=== PATIENT | female | born 1935 | race Caucasian/White ===

== ENCOUNTER 2016-12-28 17:35 | Inpatient (IN) | payer OTHER ==
[~2016-12-28] VITALS: Ht 167.6 cm; Wt 59.2 kg
[~2016-12-28 17:35] MED LIST: DONE10TA56 PO; RISP0.5T24 PO
[2016-12-28] MEDS ORDERED: SODIUM CHLORIDE 0.9% 1,000ML IVBOLUS ONE (18:30)
[2016-12-28] MEDS ORDERED: SODIUM CHLORIDE FLUSH 10ML SYR IVF ONE (18:30)
[2016-12-28 18:41] LABS: HEMATOCRIT 40.3 % (34.6-47.8); HEMOGLOBIN 13.7 g/dL (11.7-16.4); WHITE BLOOD COUNT 19.7 x10^3/uL (3.4-10)
[2016-12-28 18:53] LABS: ASPARTATE AMINO TRANSFERASE 36 U/L (15-37); BLOOD UREA NITROGEN 15 mg/dL (7-18)
[2016-12-28 19:04] LABS: DIFF TOTAL CELLS COUNTED 100 CELL DIFF
[2016-12-28 19:24] LABS: VERIFY COUNTS? YES
[2016-12-28] MEDS ORDERED: CEFTRIAXONE PMX 1GM/50ML 50 ML ONE (20:29)
[2016-12-28] MEDS ORDERED: CEFTRIAXONE PMX 1GM/50ML 50 ML IV ONE (20:30)
[2016-12-28] MEDS ORDERED: OMNIPAQUE 350 MG/ML, 100ML BOTTLE ONE (21:38)
[2016-12-28] MEDS ORDERED: AZITHROMYCIN 500 MG in SODIUM CHLORIDE 0.9% 250 ML IV ONE (22:00)
[2016-12-28] MEDS ORDERED: ONDANSETRON 2MG/ML, 2ML IVPush PRN (22:30)
[2016-12-28] MEDS ORDERED: ACETAMINOPHEN 325 MG TABLET PO PRN (22:30)
[2016-12-28] MEDS ORDERED: POLYETHYLENE GLYCOL 17 GM PACKET PO PRN (22:30)
[2016-12-28] MEDS: AZITHROMYCIN 500 MG in SODIUM CHLORIDE 0.9% 250 ML IV SCH (23:06)
[2016-12-28] MEDS: SODIUM CHLORIDE 0.9% 1,000 ML IV SCH (23:06)
[2016-12-29] VITALS: BP 161/83
[2016-12-29] MEDS: RISPERIDONE 0.5 MG TABLET PO SCH ×3 (00:18→21:42)
[2016-12-29] MEDS: HEPARIN 5,000 UNITS/ML, 1ML SQ SCH ×4 (00:18→23:04)
[2016-12-29 02:30] VITALS: BP 158/83
[2016-12-29 06:03] LABS: HEMATOCRIT 34.9 % (34.6-47.8); HEMOGLOBIN 11.9 g/dL (11.7-16.4)
[2016-12-29 06:36] LABS: ASPARTATE AMINO TRANSFERASE 32 U/L (15-37); BLOOD UREA NITROGEN 11 mg/dL (7-18)
[2016-12-29] MEDS: DONEPEZIL 10 MG TABLET PO SCH (09:18)
[2016-12-29] MEDS: BISACODYL 10 MG SUPP PR SCH (09:21)
[2016-12-29] MEDS: SENNA/DOCUSATE TABLET PO SCH (09:21)
[2016-12-29] MEDS ORDERED: POTASSIUM CHLORIDE 40 MEQ in SODIUM CHLORIDE 0.9% 500 ML IV ONE (09:30)
[2016-12-29] MEDS ORDERED: PNEUMOCOCCAL 23 VACCINE IM-VACC ONE (10:30)
[2016-12-29] MEDS ORDERED: FLU VACC QS2017-18 (36MOS+) UP/PF 0.5 ML IM-VACC ONE (10:30)
[2016-12-29] MEDS: SODIUM CHLORIDE 0.9% 1,000 ML IV SCH (12:48)
[2016-12-29 15:10] VITALS: BP 116/68
[2016-12-29 20:01] VITALS: BP 122/72
[2016-12-29] MEDS: AZITHROMYCIN 500 MG in SODIUM CHLORIDE 0.9% 250 ML IV SCH (23:04)
[2016-12-30] MEDS: CEFTRIAXONE PMX 1GM/50ML 50 ML IV SCH (00:30)
[2016-12-30 01:09] VITALS: BP 161/81
[2016-12-30 05:41] LABS: BLOOD UREA NITROGEN 14 mg/dL (7-18)
[2016-12-30 05:43] LABS: HEMATOCRIT 31.4 % (34.6-47.8); HEMOGLOBIN 10.7 g/dL (11.7-16.4); WHITE BLOOD COUNT 13.7 x10^3/uL (3.4-10)
[2016-12-30 06:38] VITALS: BP 188/70
[2016-12-30] MEDS ORDERED: hydrALAzine 20 MG/ML, 1ML IV PRN (07:30)
[2016-12-30] MEDS ORDERED: POTASSIUM CHLORIDE 40 MEQ in SODIUM CHLORIDE 0.9% 100 ML IV ONE (07:30)
[2016-12-30] MEDS: SENNA/DOCUSATE TABLET PO SCH (08:11)
[2016-12-30] MEDS: RISPERIDONE 0.5 MG TABLET PO SCH ×2 (08:11→19:39)
[2016-12-30] MEDS: BISACODYL 10 MG SUPP PR SCH (08:11)
[2016-12-30] MEDS: HEPARIN 5,000 UNITS/ML, 1ML SQ SCH ×2 (08:11→15:30)
[2016-12-30] MEDS: DONEPEZIL 10 MG TABLET PO SCH (08:11)
[2016-12-30] MEDS ORDERED: POTASSIUM CHLORIDE 40 MEQ in SODIUM CHLORIDE 0.9% 500 ML IV ONE (10:00)
[2016-12-30 12:12] VITALS: BP 171/73
[2016-12-30] MEDS: SODIUM CHLORIDE 0.9% 1,000 ML IV SCH (18:00)
[2016-12-30 18:40] VITALS: BP 122/75
[2016-12-30] MEDS ORDERED: ONDANSETRON 2MG/ML, 2ML IVPush PRN (20:00)
[2016-12-30] MEDS ORDERED: POLYETHYLENE GLYCOL 17 GM PACKET PO PRN (20:00)
[2016-12-30] MEDS ORDERED: ACETAMINOPHEN 325 MG TABLET PO PRN (20:00)
[2016-12-30] MEDS: AZITHROMYCIN 500 MG in SODIUM CHLORIDE 0.9% 250 ML IV SCH (22:29)
[2016-12-31 00:52] VITALS: BP 180/81
[2016-12-31] MEDS: CEFTRIAXONE PMX 1GM/50ML 50 ML IV SCH (01:32)
[2016-12-31] MEDS: HEPARIN 5,000 UNITS/ML, 1ML SQ SCH ×3 (04:51→20:30)
[2016-12-31] MEDS: SODIUM CHLORIDE 0.9% 1,000 ML IV SCH (04:53)
[2016-12-31 05:24] LABS: HEMOGLOBIN 10.8 g/dL (11.7-16.4); WHITE BLOOD COUNT 9.2 x10^3/uL (3.4-10)
[2016-12-31 05:30] LABS: ASPARTATE AMINO TRANSFERASE 39 U/L (15-37); BLOOD UREA NITROGEN 10 mg/dL (7-18)
[2016-12-31 06:18] VITALS: BP 159/87
[2016-12-31] MEDS: hydrALAzine 20 MG/ML, 1ML IV PRN ×2 (06:31→20:29)
[2016-12-31 07:25] VITALS: BP 151/74
[2016-12-31] MEDS: DONEPEZIL 10 MG TABLET PO SCH (08:02)
[2016-12-31] MEDS: RISPERIDONE 0.5 MG TABLET PO SCH ×2 (08:02→20:29)
[2016-12-31] MEDS: SENNA/DOCUSATE TABLET PO SCH (08:03)
[2016-12-31] MEDS: BISACODYL 10 MG SUPP PR SCH (08:03)
[2016-12-31] MEDS ORDERED: POTASSIUM CHLORIDE 20 MEQ TAB.ER.PRT PO ONE (12:30)
[2016-12-31 13:14] VITALS: BP 165/87
[2016-12-31 18:48] VITALS: BP 171/89
[2016-12-31] MEDS: AZITHROMYCIN 500 MG in SODIUM CHLORIDE 0.9% 250 ML IV SCH (22:53)
[2017-01-01] MEDS: CEFTRIAXONE PMX 1GM/50ML 50 ML IV SCH (01:58)
[2017-01-01 03:51] VITALS: BP 145/77
[2017-01-01 04:59] LABS: HEMATOCRIT 32.1 % (34.6-47.8); HEMOGLOBIN 10.9 g/dL (11.7-16.4); WHITE BLOOD COUNT 7.9 x10^3/uL (3.4-10)
[2017-01-01] MEDS: HEPARIN 5,000 UNITS/ML, 1ML SQ SCH ×3 (05:00→22:12)
[2017-01-01 05:10] LABS: BLOOD UREA NITROGEN 10 mg/dL (7-18)
[2017-01-01 06:35] VITALS: BP 153/78
[2017-01-01] MEDS: BISACODYL 10 MG SUPP PR SCH (07:58)
[2017-01-01] MEDS: DONEPEZIL 10 MG TABLET PO SCH (08:01)
[2017-01-01] MEDS: RISPERIDONE 0.5 MG TABLET PO SCH ×2 (08:02→22:12)
[2017-01-01] MEDS: SENNA/DOCUSATE TABLET PO SCH (08:02)
[2017-01-01] MEDS ORDERED: LEVO750T26 PO (08:21)
[2017-01-01] MEDS ORDERED: POTASSIUM CHLORIDE 40 MEQ in SODIUM CHLORIDE 0.9% 500 ML IV ONE (08:30)
[2017-01-01] MEDS ORDERED: MAGNESIUM SULFATE 1 GM in SODIUM CHLORIDE 0.9% 50 ML IV ONE (08:30)
[2017-01-01 14:12] VITALS: BP 175/85
[2017-01-01] MEDS: hydrALAzine 20 MG/ML, 1ML IV PRN (15:52)
[2017-01-01 18:49] VITALS: BP 150/76
[2017-01-01] MEDS: AZITHROMYCIN 500 MG in SODIUM CHLORIDE 0.9% 250 ML IV SCH (22:12)
[2017-01-02 00:12] VITALS: BP 174/84
[2017-01-02] MEDS: CEFTRIAXONE PMX 1GM/50ML 50 ML IV SCH (00:29)
[2017-01-02] MEDS: hydrALAzine 20 MG/ML, 1ML IV PRN ×2 (00:29→20:25)
[2017-01-02] MEDS: HEPARIN 5,000 UNITS/ML, 1ML SQ SCH ×3 (05:13→20:25)
[2017-01-02 05:34] LABS: HEMATOCRIT 30.5 % (34.6-47.8); HEMOGLOBIN 10.4 g/dL (11.7-16.4); WHITE BLOOD COUNT 9.6 x10^3/uL (3.4-10)
[2017-01-02 05:35] LABS: BLOOD UREA NITROGEN 9 mg/dL (7-18)
[2017-01-02 07:15] VITALS: BP 168/72
[2017-01-02] MEDS: BISACODYL 10 MG SUPP PR SCH (08:04)
[2017-01-02] MEDS: DONEPEZIL 10 MG TABLET PO SCH (08:09)
[2017-01-02] MEDS: SENNA/DOCUSATE TABLET PO SCH (08:09)
[2017-01-02] MEDS: RISPERIDONE 0.5 MG TABLET PO SCH ×2 (08:09→20:24)
[2017-01-02] MEDS ORDERED: POTASSIUM CHLORIDE 40 MEQ in SODIUM CHLORIDE 0.9% 500 ML IV ONE (11:30)
[2017-01-02] MEDS: LEVOFLOXACIN 750 MG TABLET PO SCH (12:17)
[2017-01-02 13:01] VITALS: BP 146/77
[2017-01-02 19:57] VITALS: BP 175/80
[2017-01-02 22:10] VITALS: BP 155/71
[2017-01-02 22:50] VITALS: BP 149/64
[2017-01-03 00:25] VITALS: BP 152/72
[2017-01-03] MEDS: HEPARIN 5,000 UNITS/ML, 1ML SQ SCH ×2 (05:16→13:00)
[2017-01-03 06:05] LABS: HEMOGLOBIN 11.3 g/dL (11.7-16.4); WHITE BLOOD COUNT 8.8 x10^3/uL (3.4-10)
[2017-01-03 06:29] LABS: BLOOD UREA NITROGEN 10 mg/dL (7-18)
[2017-01-03 07:16] VITALS: BP 174/81
[2017-01-03] MEDS ORDERED: LISINOPRIL 20 MG TABLET PO SCH (09:00)
[2017-01-03] MEDS: BISACODYL 10 MG SUPP PR SCH (09:00)
[2017-01-03] MEDS: DONEPEZIL 10 MG TABLET PO SCH (10:31)
[2017-01-03] MEDS: SENNA/DOCUSATE TABLET PO SCH (10:31)
[2017-01-03] MEDS: RISPERIDONE 0.5 MG TABLET PO SCH (10:31)
[2017-01-03] MEDS: LEVOFLOXACIN 750 MG TABLET PO SCH (12:31)
[2017-01-03 13:50] VITALS: BP 134/73
== END 2017-01-03 16:30 | DRG 193 ==
LOC: ED 21:37 → EDIP 21:50 → 3NE 23:17
PROVIDERS: ADMIT Internal Medicine; ATTEND Internal Medicine
PROC: 0T9B70Z Drainage of Bladder with Drainage Device, Via Natural or Artificial Opening (ICD-10-PCS; principal; 2016-12-28)
DX: J18.9 Pneumonia, unspecified organism (principal); J96.01 Acute respiratory failure with hypoxia; G93.41 Metabolic encephalopathy; I31.3 Pericardial effusion (noninflammatory); S32.10XA Unspecified fracture of sacrum, initial encounter for closed fracture; E44.1 Mild protein-calorie malnutrition; N39.0 Urinary tract infection, site not specified; E86.0 Dehydration; F03.90 Unspecified dementia, unspecified severity, without behavioral disturbance, psychotic disturbance, mood disturbance, and anxiety; W19.XXXA Unspecified fall, initial encounter; K59.00 Constipation, unspecified; K44.9 Diaphragmatic hernia without obstruction or gangrene; Z87.891 Personal history of nicotine dependence; Z90.710 Acquired absence of both cervix and uterus; Z68.21 Body mass index [BMI] 21.0-21.9, adult; Y93.89 Activity, other specified; Y92.89 Other specified places as the place of occurrence of the external cause; B96.20 Unspecified Escherichia coli [E. coli] as the cause of diseases classified elsewhere
CPT/HCPCS: 36415; 70450; 71010; 71275; 74177; 80048; 80053; 81001; 82140; 83605; 83735; 84132; 84145; 85025; 85610; 85730; 87040; 87077; 87086; 87186; 90686; 90732; 93005; 96361; 96365; J0456; J0696; J1644; J3475; J3480; Q9967; J0360; J7030; J7040; J7050